=== PATIENT | female | born 1990 | race Two or more races ===

== ENCOUNTER 2019-11-15 11:48 | Emergency (ER) | payer OTHER ==
[~2019-11-15] VITALS: Ht 162.6 cm; Wt 59.0 kg
[2019-11-15 12:05] VITALS: BP 143/84
--- NOTE | 2019-11-15 12:28 | NUR ---
patient left via ambulatory accompanied by [employer] in custody in no distress.
== END 2019-11-15 12:28 ==
LOC: ER 11:50
DX: R05 Cough (principal); Z88.2 Allergy status to sulfonamides